=== PATIENT | female | born 1985 | race Caucasian/White ===

== ENCOUNTER 2018-03-17 14:17 | Emergency (ER) | payer MEDICAID ==
[~2018-03-17] VITALS: Ht 162.6 cm; Wt 90.7 kg
[~2018-03-17 14:17] MED LIST: AMOXICILLIN 50500 M1 PO; AUGMENTIN 500-1 EACH PO; BACTRIM DS TAB1 EACH; BACTRIM DS TAB1 EACH PO; CIPROFLOXACIN500 M1 PO; CLEOCIN HCL300 MG PO; FIFTY50 RESERV1 EACH; HUMALOG100 UNIT/1 SQ; HYDROCODON-ACE1 EAC7 PO; HYDROCODONE-AP1 EAC6 PO; IBUPROFEN 800800 M1 PO; KEFLEX500 MG; KEFLEX500 MG PO; LANTUS; LANTUS SOL100 UNIT/1 SUBQ; MEDROL DOSPAK21 TA1 PO; NORCO 5-325 TA1 EACH PO; NOVOLOG100 UNIT/1; NOVOLOG100 UNIT/1 SUBQ; PEPCID AC20 M1 PO; PERCOCET 5-3251 EACH PO; PHENERGAN 25 MG25 M1 PO; PREDNISONE 20 M20 MG PO; PROTONIX40 MG PO; PROVENTIL HFA6.7 G1 INH; ZOFRAN4 MG PO
[2018-03-17] MEDS ORDERED: PREDNISONE10 MG PO (15:19)
[2018-03-17 15:31] VITALS: BP 127/79
== END 2018-03-17 15:32 | disposition home or self-care (01) ==
LOC: M.ERS 14:17
DX: L25.5 Unspecified contact dermatitis due to plants, except food (principal); F17.210 Nicotine dependence, cigarettes, uncomplicated; E10.8 Type 1 diabetes mellitus with unspecified complications

== ENCOUNTER 2018-05-01 03:12 | Inpatient (IN) | payer OTHER, MEDICAID ==
[~2018-05-01] VITALS: Ht 162.6 cm; Wt 89.4 kg
[2018-05-01] VITALS (16 sets, daily range): BP systolic 104–133; BP diastolic 54–84
[~2018-05-01 03:12] MED LIST changes: +PREDNISONE10 MG PO
[2018-05-01 03:44] LABS: ABSOLUTE BASOPHILS 0.1 thou/uL (0.0-0.2); ABSOLUTE EOSINOPHILS 0.2 thou/uL (0.0-0.7); ABSOLUTE LYMPHOCYTES 2.1 thou/uL (0.8-5.3); ABSOLUTE MONOCYTES 0.6 thou/uL (0.0-1.2); ABSOLUTE NEUTROPHILS 12.7 thou/uL (1.6-8.1); BASOPHILS 0.6 %; EOSINOPHILS 1.4 %; HEMOGLOBIN 12.8 gm/dL (12.0-15.0); LYMPHOCYTES 13.6 %; MCH 25.5 pg (26.0-34.0); MCHC 29.7 g/dL (28.0-37.0); MCV 85.8 fL (80.0-100.0); MONOCYTES 3.8 %; MPV 8.3 fl. (7.2-11.1); NUCLEATED RBCS 0 /100WBC; PLATELET COUNT* 359 thou/uL (150-400); POLYS 80.6 %; RBC 5.02 mil/uL (4.20-5.00); RDW-CV 17.8 % (10.5-14.5); WBC 15.8 thou/uL (4.0-11.0)
[2018-05-01 03:55] LABS: CALCIUM 8.6 mg/dL (8.5-10.1); POTASSIUM 4.5 mmol/L (3.5-5.1)
[2018-05-01] MEDS ORDERED: HUMALOG100 UNIT/1 (03:56)
[2018-05-01 03:57] LABS: ALBUMIN 3.8 g/dL (3.4-5.0); TOTAL BILIRUBIN 0.5 mg/dL (<0.1-1.0); TOTAL PROTEIN 7.9 g/dL (6.4-8.2)
[2018-05-01 04:10] LABS: BE -15.6 mmol/L (-2 to +3); PCO2 31.7 mmHg (35.0-45.0)
[2018-05-01 04:13] LABS: HCO3 11.6 mmol/L (22.0-26.0); PO2 35.1 mmHg (75.0-100.0)
[2018-05-01 08:19] LABS: CALCIUM 7.9 mg/dL (8.5-10.1); PHOSPHORUS* 2.6 mg/dL (2.5-4.9); POTASSIUM 4.2 mmol/L (3.5-5.1)
[2018-05-01 11:04] LABS: CALCIUM 7.8 mg/dL (8.5-10.1); CREATININE 0.8 mg/dL (0.6-1.3); MAGNESIUM 1.9 mg/dL (1.8-2.4); POTASSIUM 4.2 mmol/L (3.5-5.1)
[2018-05-01 14:49] LABS: ALBUMIN 2.7 g/dL (3.4-5.0); CALCIUM 7.6 mg/dL (8.5-10.1); CREATININE 0.7 mg/dL (0.6-1.3); MAGNESIUM 1.8 mg/dL (1.8-2.4); PHOSPHORUS* 3.5 mg/dL (2.5-4.9); POTASSIUM 4.7 mmol/L (3.5-5.1)
[2018-05-01 19:19] LABS: ALBUMIN 2.9 g/dL (3.4-5.0); CREATININE 0.9 mg/dL (0.6-1.3); MAGNESIUM 1.7 mg/dL (1.8-2.4); PHOSPHORUS* 2.9 mg/dL (2.5-4.9); POTASSIUM 3.9 mmol/L (3.5-5.1)
[2018-05-01 23:39] LABS: ALBUMIN 2.7 g/dL (3.4-5.0); CALCIUM 7.8 mg/dL (8.5-10.1); CREATININE 0.8 mg/dL (0.6-1.3); MAGNESIUM 1.7 mg/dL (1.8-2.4); PHOSPHORUS* 3.5 mg/dL (2.5-4.9)
[2018-05-02] VITALS (11 sets, daily range): BP systolic 103–127; BP diastolic 58–81
[2018-05-02 04:19] LABS: ABSOLUTE EOSINOPHILS 0.3 thou/uL (0.0-0.7); ABSOLUTE LYMPHOCYTES 2.4 thou/uL (0.8-5.3); ABSOLUTE MONOCYTES 0.4 thou/uL (0.0-1.2); ABSOLUTE NEUTROPHILS 2.8 thou/uL (1.6-8.1); BASOPHILS 0.7 %; EOSINOPHILS 4.5 %; HEMATOCRIT 34.3 % (37.0-47.0); LYMPHOCYTES 41.1 %; MCH 26.2 pg (26.0-34.0); MCHC 31.6 g/dL (28.0-37.0); MCV 82.8 fL (80.0-100.0); MONOCYTES 6.1 %; NUCLEATED RBCS 0 /100WBC; POLYS 47.6 %; RBC 4.14 mil/uL (4.20-5.00); RDW-CV 17.3 % (10.5-14.5); WBC 5.8 thou/uL (4.0-11.0)
[2018-05-02 04:29] LABS: HEMOGLOBIN 10.8 gm/dL (12.0-15.0); PLATELET COUNT* 263 thou/uL (150-400)
[2018-05-02 04:37] LABS: ALBUMIN 2.7 g/dL (3.4-5.0); CREATININE 0.7 mg/dL (0.6-1.3); MAGNESIUM 1.8 mg/dL (1.8-2.4); PHOSPHORUS* 4.1 mg/dL (2.5-4.9); POTASSIUM 4.5 mmol/L (3.5-5.1)
[2018-05-02 05:08] LABS: ALBUMIN 2.6 g/dL (3.4-5.0); ALKALINE PHOSPHATASE 144 U/L (46-116); ANION GAP 11 mmol/L (7-16); BUN 9 mg/dL (7-18); CALCIUM 7.9 mg/dL (8.5-10.1); CHLORIDE 108 mmol/L (98-107); CO2 21 mmol/L (21-32); CREATININE 0.7 mg/dL (0.6-1.3); GLUCOSE 182 mg/dL (70-99); POTASSIUM 4.6 mmol/L (3.5-5.1); SGOT 17 U/L (15-37); SGPT 22 U/L (30-65); SODIUM 140 mmol/L (136-145); TOTAL BILIRUBIN 0.1 mg/dL (<0.1-1.0); TOTAL PROTEIN 5.7 g/dL (6.4-8.2)
[2018-05-02 08:02] LABS: ALBUMIN 2.7 g/dL (3.4-5.0); CALCIUM 7.7 mg/dL (8.5-10.1); CREATININE 0.7 mg/dL (0.6-1.3); MAGNESIUM 1.7 mg/dL (1.8-2.4); PHOSPHORUS* 3.6 mg/dL (2.5-4.9); POTASSIUM 4.5 mmol/L (3.5-5.1)
[2018-05-02 09:12] LABS: URINE BILIRUBIN NEGATIVE (Negative); URINE BLOOD NEGATIVE (Negative); URINE CLARITY CLEAR; URINE COLOR YELLOW; URINE GLUCOSE-RANDOM 1+ (Negative); URINE KETONES NEGATIVE (Negative); URINE LEUKOCYTES-REFLEX NEGATIVE (Negative); URINE NITRITE-REFLEX NEGATIVE (Negative); URINE PROTEIN NEGATIVE (Negative); URINE UROBILINOGEN 0.2 E.U./dl (0.2-1.0)
[2018-05-02 12:54] LABS: ALBUMIN 2.6 g/dL (3.4-5.0); CALCIUM 7.9 mg/dL (8.5-10.1); CREATININE 0.6 mg/dL (0.6-1.3); MAGNESIUM 1.7 mg/dL (1.8-2.4); PHOSPHORUS* 2.7 mg/dL (2.5-4.9); POTASSIUM 4.4 mmol/L (3.5-5.1)
== END 2018-05-02 13:00 | disposition home or self-care (01) | DRG 639 ==
LOC: M.ERS 03:12 → M.TBA-ER 04:15 → M.ICU 04:15
PROVIDERS: Family Medicine; Internal Medicine; ADMIT Internal Medicine
DX: E10.10 Type 1 diabetes mellitus with ketoacidosis without coma (principal); F17.210 Nicotine dependence, cigarettes, uncomplicated; Z98.891 History of uterine scar from previous surgery; Z79.4 Long term (current) use of insulin

== ENCOUNTER 2019-04-29 22:34 | Emergency (ER) | payer OTHER, MEDICAID ==
[~2019-04-29] VITALS: Ht 162.6 cm; Wt 85.3 kg
[~2019-04-29 22:34] MED LIST changes: +HUMALOG100 UNIT/1
[2019-04-29 22:42] VITALS: BP 173/97
[2019-04-29] MEDS ORDERED: HUMULIN R100 UNIT/M SUBQ (22:44)
[2019-04-29] MEDS ORDERED: HUMULIN N100 UNIT/1 SUBQ (22:44)
== END 2019-04-29 23:14 | disposition home or self-care (01) ==
LOC: M.ERS 22:34
DX: E11.9 Type 2 diabetes mellitus without complications (principal); Z76.0 Encounter for issue of repeat prescription; F17.210 Nicotine dependence, cigarettes, uncomplicated; Z98.890 Other specified postprocedural states; Z79.4 Long term (current) use of insulin

== ENCOUNTER 2019-10-22 10:05 | Emergency (ER) | payer OTHER, MEDICAID ==
[~2019-10-22] VITALS: Ht 162.6 cm; Wt 81.7 kg
[~2019-10-22 10:05] MED LIST changes: +HUMULIN N100 UNIT/1 SUBQ; +HUMULIN R100 UNIT/M SUBQ
[2019-10-22 10:50] LABS: ABSOLUTE BASOPHILS 0.1 thou/uL (0.0-0.2); ABSOLUTE EOSINOPHILS 0.1 thou/uL (0.0-0.7); ABSOLUTE LYMPHOCYTES 1.2 thou/uL (0.8-5.3); ABSOLUTE MONOCYTES 0.3 thou/uL (0.0-1.2); BASOPHILS 0.7 %; EOSINOPHILS 1.3 %; HEMATOCRIT 39.4 % (37.0-47.0); HEMOGLOBIN 12.4 gm/dL (12.0-15.0); LYMPHOCYTES 13.9 %; MCHC 31.5 g/dL (28.0-37.0); MCV 82.3 fL (80.0-100.0); MONOCYTES 3.6 %; NUCLEATED RBCS 0 /100WBC; PLATELET COUNT* 332 thou/uL (150-400); POLYS 80.5 %; RBC 4.78 mil/uL (4.20-5.00); RDW-CV 15.5 % (10.5-14.5); WBC 8.7 thou/uL (4.0-11.0)
[2019-10-22 10:51] LABS: BE -15.2 mmol/L (-2 to +3); PCO2 VENOUS 27.1 mmHg (41.0-51.0); PO2 VENOUS 92.6 mmHg (35.0-45.0)
[2019-10-22 11:00] LABS: CALCIUM 8.4 mg/dL (8.5-10.1); CREATININE 0.8 mg/dL (0.6-1.3); POTASSIUM 4.4 mmol/L (3.5-5.1)
[2019-10-22 11:05] LABS: ALBUMIN 3.3 g/dL (3.4-5.0); TOTAL BILIRUBIN 0.4 mg/dL (<0.1-1.0); TOTAL PROTEIN 7.4 g/dL (6.4-8.2)
[2019-10-22 12:59] LABS: CALCIUM 8.3 mg/dL (8.5-10.1); CREATININE 0.8 mg/dL (0.6-1.3); POTASSIUM 4.2 mmol/L (3.5-5.1)
[2019-10-22 13:22] VITALS: BP 120/75
== END 2019-10-22 13:23 | disposition home or self-care (01) ==
LOC: M.ERS 10:05
PROVIDERS: Family Medicine
DX: E10.10 Type 1 diabetes mellitus with ketoacidosis without coma (principal); Z98.890 Other specified postprocedural states